=== PATIENT | female | born 1940 | race Caucasian/White ===

== ENCOUNTER 2018-06-24 09:53 | Inpatient (IN) ==
--- NOTE | 2018-06-24 10:01 | Emergency Department Note ---
Disposition Clinical Impression: Venous stasis ulcer of left ankle with fat layer exposed Disposition: Admitted As Inpatient Condition: Fair General Adult HPI - General Stated complaint: Ucler Lt leg / Altered Time Seen by Provider: 06/24/18 09:56 - Related Data Home Medications Medication Instructions Recorded Confirmed Atorvastatin [Lipitor] 20 mg PO HS 06/24/18 06/24/18 BuPROPion XL (24 HR) [Wellbutrin 150 mg PO DAILY 06/24/18 06/24/18 XL] Gabapentin [Neurontin] 300 mg PO Q12H 06/24/18 06/24/18 Losartan Potassium [Cozaar] 50 mg PO DAILY 06/24/18 06/24/18 OxyCODONE/APAP 10/325 [Percocet 1 each PO 5XD PRN 06/24/18 06/24/18 10/325 MG] Allergies Allergy/AdvReac Type Severity Reaction Status Date / Time No Known Allergies Allergy Verified 04/29/18 08:49 Past Medical History - Past Medical History Medical history: Reports: aortic aneurysm, cancer, COPD, dementia, diabetes, GERD, hyperlipidemia, hypertension, myocardial infarction Psychiatric history: Reports: no psych history - Social History Smoking Status: Current every day smoker Smokeless Tobacco Status: No Alcohol use: Reports: none Drug use: Reports: none Course Vital Signs Temperature 97.8 F 06/24/18 10:12 Pulse Rate 65 06/24/18 10:12 Respiratory Rate 18 06/24/18 10:12 Blood Pressure 131/66 06/24/18 10:12 O2 Sat by Pulse Oximetry 100 06/24/18 10:12 Temperature 98.2 F 06/25/18 10:05 Pulse Rate 71 06/25/18 10:05 Respiratory Rate 15 06/25/18 10:05 Blood Pressure 146/71 06/25/18 10:05 O2 Sat by Pulse Oximetry 96 06/25/18 10:05 Oxygen Delivery Oxygen Delivery Room Air Medical Decision Making - Lab Data Result diagrams: 06/25/18 03:44 06/24/18 10:20 Lab Results 06/24/18 06/24/18 06/24/18 Range/Units 10:20 10:20 10:20 WBC 9.2 (4.3-11.1) K/mcL RBC 4.26 (3.82-4.97) M/mcL Hgb 12.4 (11.5-15.4) g/dL Hct 40.1 (35.3-44.9) % MCV 94.1 (83.0-100.0) fL MCH 29.1 (28.0-33.3) pg MCHC 30.9 L (31.6-35.5) g/dL RDW 13.9 (11.5-14.5) % Plt Count 174 (140-400) K/mcL MPV 11.3 (9.4-12.4) fL Immature Gran % 0.3 (0-4) % Seg Neutrophils % 70.7 % Lymphocytes % 17.3 % Monocytes % 8.1 % Eosinophils % 2.8 % Basophils % 0.8 % Neutrophils # 6.5 (1.6-8.9) K/mcL Lymphocytes # 1.6 (0.6-4.6) K/mcL Monocytes # 0.7 (0.0-1.3) K/mcL Eosinophils # 0.3 (0.0-0.6) K/mcL Basophils # 0.1 (0.0-0.2) K/mcL ESR 50 H (0-15) mm/hr Sodium 138 (136-145) mEq/L Potassium 4.5 (3.5-5.1) mEq/L Chloride 105 (98-107) mEq/L Carbon Dioxide 28 (23-29) mEq/L BUN 10 (8-23) mg/dL Creatinine 0.80 (0.60-1.20) mg/dL Est GFR ( Amer) > 60 (> 60) Est GFR (Non-Af Amer) > 60 (> 60) BUN/Creatinine Ratio 13 (6-26) Glucose 95 (70-105) mg/dL Calculated Osmolality 285 (280-300) Calcium 8.6 (8.6-10.3) mg/dL Attestation Statement - Attestation Attestation: For this encounter, I have reviewed the [facility] or PA documentation, treatment plan, and medical decision making; and I have had face to face time with this patient. Face to face time provided. Patient sent to ED for chronic LE ulceration. granulatioin tissue present. Evaluated with SABINO
[2018-06-24] MEDS ORDERED: 0.9 % Sodium Chloride 1,000 ML IVC ONE (10:06)
--- NOTE | 2018-06-24 10:09 | Emergency Department Note ---
Disposition Clinical Impression: Venous stasis ulcer of left ankle with fat layer exposed Qualifiers: Varicose vein presence: with varicose veins Qualified Code(s): I83.023 - Varicose veins of left lower extremity with ulcer of ankle Disposition: Admitted As Inpatient Condition: Fair Extremity Problem HPI - General Chief complaint: ED Extremity Problem,Nontraumatic Stated complaint: Ucler Lt leg / Altered Time Seen by Provider: 06/24/18 09:56 Source: patient, family, other Mode of arrival: wheelchair Limitations: no limitations Nursing Notes Reviewed: Yes Vital Signs Reviewed: Yes - History of Present Illness HPI Narrative: Patient was sent to ED from wound care for admission. She saw her surgeon this AM - Dr. Gusman - and he is concerned about osteomyelitis. She has ulcerations on her ankle which have failed outpatient treatment. Pt Subjective Complaint: extremity pain, other Onset (ago): month(s) Consistency: constant Injury Location: left Quality: burning Radiation: none Improves with: immobilization, elevation, rest Worsens with: weight bearing, walking, palpation Associated symptoms: Reports: denies other symptoms Context: history of peripheral vascular disease - Related Data Home Medications Medication Instructions Recorded Confirmed Atorvastatin [Lipitor] 20 mg PO HS 06/24/18 06/24/18 BuPROPion XL (24 HR) [Wellbutrin 150 mg PO DAILY 06/24/18 06/24/18 XL] Gabapentin [Neurontin] 300 mg PO Q12H 06/24/18 06/24/18 Losartan Potassium [Cozaar] 50 mg PO DAILY 06/24/18 06/24/18 OxyCODONE/APAP 10/325 [Percocet 1 each PO 5XD PRN 06/24/18 06/24/18 10/325 MG] Allergies Allergy/AdvReac Type Severity Reaction Status Date / Time No Known Allergies Allergy Verified 04/29/18 08:49 All systems ED: reviewed and negative except as stated. Review of Systems: As Per HPI Constitutional: Denies: fever, chills, weakness, weight change Eyes: Denies: vision change Cardiovascular: Denies: chest pain, palpitations, dyspnea on exertion, orthopnea, edema, syncope Respiratory: Denies: cough, dyspnea, wheezes, hemoptysis, stridor, sputum production Gastrointestinal: Denies: abdominal pain, nausea, vomiting, diarrhea Musculoskeletal: Denies: back pain, neck pain, joint swelling Integumentary: Denies: rash Neurological: Denies: headache, weakness, numbness, paresthesias Hematological/Lymphatic: Denies: easy bleeding, easy bruising, lymphadenopathy Past Medical History - Past Medical History Attestation: Yes The following information was validated with the patient. Source: patient Medical history: Reports: aortic aneurysm, cancer, COPD, dementia, diabetes, GERD, hyperlipidemia, hypertension, myocardial infarction Surgical history: Reports: orthopedic, other Psychiatric history: Reports: no psych history - Social History Smoking Status: Current every day smoker Smokeless Tobacco Status: No Alcohol use: Reports: none Drug use: Reports: none Physical Exam - General Limitations: no limitations General appearance: alert, in no apparent distress - Head Head exam: atraumatic, normocephalic, normal inspection - Eye Eye exam: Present: normal appearance. Absent: scleral icterus, conjunctival injection, periorbital swelling - ENT ENT exam: normal oropharynx, mucous membranes moist - Neck Neck exam: Present: normal inspection, full ROM, trachea midline. Absent: meningismus - Chest Chest inspection: Present: normal inspection - Respiratory Respiratory exam: Present: normal lung sounds bilaterally. Absent: respiratory distress - Cardiovascular Cardiovascular exam: Present: regular rate, normal rhythm, normal heart sounds - Extremities Exam Extremities exam: Present: tenderness, normal capillary refill. Absent: calf tenderness - Expanded Lower Extremity Exam Hip/Pelvis exam: Present: full ROM Upper leg exam: Absent: tenderness Knee exam: Present: full ROM, knee extension intact. Absent: tenderness, swelling Lower leg exam: Present: Achilles tendon intact. Absent: tenderness, swelling, Homans' sign Ankle exam: Present: full ROM, tenderness, erythema, other (stege 3 decubitus ulcers lukas-lateral and postero-lateral left ankle) Foot/toe exam: Present: full ROM, tenderness, erythema (cellulitis dorsal left foot), other. Absent: ecchymosis Neurovascular/Tendon exam: Present: normal capillary refill. Absent: pulse deficit, motor deficit, sensory deficit, tendon deficit, extremity cold to touch, pallor, foot drop Gait: antalgic - Neurological Exam Neurological exam: Present: alert, oriented X3, CN II-XII intact - Psychiatric Psychiatric exam: Present: normal affect, normal mood - Skin Skin exam: Present: warm, dry, intact, normal color Course Vital Signs Temperature 97.8 F 06/24/18 10:12 Pulse Rate 65 06/24/18 10:12 Respiratory Rate 18 06/24/18 10:12 Blood Pressure 131/66 06/24/18 10:12 O2 Sat by Pulse Oximetry 100 06/24/18 10:12 Temperature 98.2 F 06/25/18 10:05 Pulse Rate 71 06/25/18 10:05 Respiratory Rate 15 06/25/18 10:05 Blood Pressure 146/71 06/25/18 10:05 O2 Sat by Pulse Oximetry 96 06/25/18 10:05 Oxygen Delivery Oxygen Delivery Room Air Extremity Problem, Nontraumati - Medical Records Medical records reviewed: Yes I reviewed the patient's medical records. - Lab Data Lab results reviewed: Yes I reviewed the patient's lab results. Result diagrams: 06/25/18 03:44 06/24/18 10:20 Lab Results 06/24/18 06/24/18 06/24/18 Range/Units 10:20 10:20 10:20 WBC 9.2 (4.3-11.1) K/mcL RBC 4.26 (3.82-4.97) M/mcL Hgb 12.4 (11.5-15.4) g/dL Hct 40.1 (35.3-44.9) % MCV 94.1 (83.0-100.0) fL MCH 29.1 (28.0-33.3) pg MCHC 30.9 L (31.6-35.5) g/dL RDW 13.9 (11.5-14.5) % Plt Count 174 (140-400) K/mcL MPV 11.3 (9.4-12.4) fL Immature Gran % 0.3 (0-4) % Seg Neutrophils % 70.7 % Lymphocytes % 17.3 % Monocytes % 8.1 % Eosinophils % 2.8 % Basophils % 0.8 % Neutrophils # 6.5 (1.6-8.9) K/mcL Lymphocytes # 1.6 (0.6-4.6) K/mcL Monocytes # 0.7 (0.0-1.3) K/mcL Eosinophils # 0.3 (0.0-0.6) K/mcL Basophils # 0.1 (0.0-0.2) K/mcL ESR 50 H (0-15) mm/hr Sodium 138 (136-145) mEq/L Potassium 4.5 (3.5-5.1) mEq/L Chloride 105 (98-107) mEq/L Carbon Dioxide 28 (23-29) mEq/L BUN 10 (8-23) mg/dL Creatinine 0.80 (0.60-1.20) mg/dL Est GFR ( Amer) > 60 (> 60) Est GFR (Non-Af Amer) > 60 (> 60) BUN/Creatinine Ratio 13 (6-26) Glucose 95 (70-105) mg/dL Calculated Osmolality 285 (280-300) Calcium 8.6 (8.6-10.3) mg/dL - Radiology Data Radiology results reviewed: Yes I reviewed the patient's radiology results. Ankle X-Ray 06/24/18 10:03 IMPRESSION: 1. Previous surgical fixation of left ankle. Unchanged appearance of the surgical hardware. 2. No radiographic evidence of acute osseous abnormalities. No radiographic evidence of osteomyelitis. D/ / 06/24/2018 10:52:42 Umair Nino MD / Kaye Hidalgo Interpreting Provider: Umair Nino MD Foot X-Ray 06/24/18 10:03
[2018-06-24] MEDS ORDERED: Piperacillin/Tazobactam 3.375 GM in 0.9 % Sodium Chloride Mini Bag 100 ML IVPB ONE (10:10)
[2018-06-24] MEDS ORDERED: Vancomycin (wt based) 1,000 MG VIAL IV ONE (10:11)
[2018-06-24] MEDS ORDERED: *HR* HYDROcodone/Acet 5/325 mg TABLET PO ONE (10:33)
[2018-06-24] MEDS ORDERED: Ondansetron ODT 4 MG TAB.RAPDIS SL ONE (10:33)
[2018-06-24 10:48] LABS: Basophils # 0.1 K/mcL (0.0-0.2); Basophils % 0.8 %; Eosinophils # 0.3 K/mcL (0.0-0.6); Eosinophils % 2.8 %; Hematocrit 40.1 % (35.3-44.9); Hemoglobin 12.4 g/dL (11.5-15.4); Immature Granulocytes % 0.3 % (0-4); Lymphocytes # 1.6 K/mcL (0.6-4.6); Lymphocytes % 17.3 %; Mean Corpuscular HGB Conc 30.9 g/dL (31.6-35.5); Mean Corpuscular Hemoglobin 29.1 pg (28.0-33.3); Mean Corpuscular Volume 94.1 fL (83.0-100.0); Mean Platelet Volume 11.3 fL (9.4-12.4); Monocytes # 0.7 K/mcL (0.0-1.3); Monocytes % 8.1 %; Neutrophils # 6.5 K/mcL (1.6-8.9); Platelet Count 174 K/mcL (140-400); Red Blood Count 4.26 M/mcL (3.82-4.97); Red Cell Distribution Width 13.9 % (11.5-14.5); Segmented Neutrophils % 70.7 %
[2018-06-24 10:53] LABS: BUN/Creatinine Ratio 13 (6-26); Blood Urea Nitrogen 10 mg/dL (8-23); Calcium 8.6 mg/dL (8.6-10.3); Carbon Dioxide 28 mEq/L (23-29); Chloride 105 mEq/L (98-107); Glucose 95 mg/dL (70-105); Osmolality,Calculated 285 (280-300); Potassium 4.5 mEq/L (3.5-5.1); Sodium 138 mEq/L (136-145); eGFR For Non-African Americans > 60 (> 60)
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
[2018-06-24] MEDS ORDERED: Acetaminophen 325 MG TABLET PO PRN (12:37)
[2018-06-24] MEDS ORDERED: Naloxone 0.4 MG/ML INJ IVP PRN (12:37)
[2018-06-24] MEDS: Ringers Solution, Lactated 1,000 ML IVC SCH (14:14)
[2018-06-24] MEDS: traMADol 50 MG TABLET PO PRN ×2 (15:14→21:16)
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
[2018-06-24] MEDS ORDERED: Ketorolac 30 MG/ML VIAL IVP PRN (16:44)
[2018-06-24] MEDS: *HR* OxyCODONE/APAP 10/325 TABLET PO PRN (17:13)
[2018-06-24] MEDS: Piperacillin/Tazobactam 3.375 GM in 0.9 % Sodium Chloride Mini Bag 100 ML IVPB SCH (18:21)
[2018-06-24] MEDS: Gabapentin 300 MG CAPSULE PO SCH (21:08)
[2018-06-25] MEDS: Ringers Solution, Lactated 1,000 ML IVC SCH (02:23)
[2018-06-25] MEDS: Piperacillin/Tazobactam 3.375 GM in 0.9 % Sodium Chloride Mini Bag 100 ML IVPB SCH ×3 (03:04→18:21)
[2018-06-25 04:58] LABS: Hematocrit 38.4 % (35.3-44.9); Hemoglobin 11.6 g/dL (11.5-15.4); Mean Corpuscular HGB Conc 30.2 g/dL (31.6-35.5); Mean Corpuscular Hemoglobin 28.6 pg (28.0-33.3); Mean Corpuscular Volume 94.8 fL (83.0-100.0); Mean Platelet Volume 11.3 fL (9.4-12.4); Platelet Count 152 K/mcL (140-400); Red Blood Count 4.05 M/mcL (3.82-4.97); Red Cell Distribution Width 13.7 % (11.5-14.5)
[2018-06-25 05:14] LABS: Chol/HDL Ratio 3.6 (0-4.9)
[2018-06-25] MEDS: *HR* Enoxaparin 40 MG/0.4 ML SYRINGE SQ SCH (06:05)
[2018-06-25] MEDS: Gabapentin 300 MG CAPSULE PO SCH ×2 (09:29→21:21)
[2018-06-25] MEDS: BuPROPion XL (24 HR) 150 MG TABLET PO SCH (09:29)
[2018-06-25] MEDS: traMADol 50 MG TABLET PO PRN (09:29)
[2018-06-25] MEDS: Gentamicin Oint 15 GM TUBE TP SCH ×2 (11:42→11:45)
--- NOTE | 2018-06-25 13:49 | Internal Med Progress Note ---
Hospitalist Progress Note - Encounter Date of Encounter: 06/25/18 Time of Encounter: 13:47 - Subjective Interval History: Pt denies prior history of diabetes though it's documented in past meidcal history. She denies PAD or neuropathy that she is aware of. She does report heel pain. She denies fever chills, N/V or diarrhea. She denies chest pain or SOB. - Exam Vitals: Temp Pulse Resp BP Pulse Ox 98.2 F 71 15 146/71 96 06/25/18 10:05 06/25/18 10:05 06/25/18 10:05 06/25/18 10:05 06/25/18 10:05 Exam: - General Limitations: no limitations General appearance: alert, in no apparent distress - Head Head exam: atraumatic, normocephalic, normal inspection - Eye Eye exam: Present: normal appearance. Absent: scleral icterus, conjunctival injection, periorbital swelling - ENT ENT exam: normal oropharynx, mucous membranes moist - Neck Neck exam: Present: normal inspection, full ROM, trachea midline. Absent: meningismus - Chest Chest inspection: Present: normal inspection - Respiratory Respiratory exam: Present: normal lung sounds bilaterally. Absent: respiratory distress - Cardiovascular Cardiovascular exam: Present: regular rate, normal rhythm, normal heart sounds - Extremities Exam Extremities exam: Present: Left calf tenderness with surrounding erythema, normal capillary refill. Absent: Right calf tenderness - Assessment and Plan (1) Non healing left heel wound Current Visit: Yes Status: Acute Assessment and Plan: Pt states she has had wound since before May. Orthopedic consulted to see and recommending continue antibiotic and possible ID consult. Venous doppler negative for acute DVT. Arterial doppler Impressions: 1) Right lower extremity waveform demonstrates normal hemodynamics. 2) Right Ankle Brachial Index is normal. 1) Left lower extremity waveform demonstrates mildly diminished hemodynamics. 2) Left Ankle Brachial Index demonstrates mildly occlusive disease. (2) Cellulitis Current Visit: Yes Status: Acute Assessment and Plan: Continue on Vancomycin and Zosyn for now. (3) Diabetes 1.5, managed as type 2 Current Visit: Yes Status: Chronic Assessment and Plan: Hgb A1C 6.0 but blood glucose has been wnl. (4) COPD (chronic obstructive pulmonary disease) Current Visit: Yes Status: Chronic Assessment and Plan: Not in exacerbation. Adding Albuterol prn (5) Dementia Current Visit: Yes Status: Chronic Assessment and Plan: Will continue supportive care (6) HTN (hypertension) Current Visit: Yes Status: Chronic Assessment and Plan: Losartan DVT Prophylaxis: Lovenox - Summary of Assessment and Plan Summary of Assessment and Plan: History of present illness: Dr. Serrano Ms. Salazar is a 78 year old female Patient with history of aortic aneurysm, COPD, dementia, diabetes, high cholesterol, hypertension and GERD. Patient was sent from wound center because of nonhealing left foot wound and celluliti s patient usually followed by podiatry has been consult for follow-up x-ray does not show acute osteomyelitis patient started on vancomycin and Zosy n , will send culture management by podiatry service patient denies any fever or chills - Time Spent with Patient Total time spent is greater than 50% in coordination of care (as documented) at patient's floor/unit and/or counseling patient: less than 15 minutes Plan of Care Discussed with: patient Internal Medicine: Result - Labs CBC & Chem 7: 06/25/18 03:44 06/24/18 10:20 Labs: Short CBC 06/25/18 Range/Units 03:44 WBC 8.4 (4.3-11.1) K/mcL Hgb 11.6 (11.5-15.4) g/dL Hct 38.4 (35.3-44.9) % Plt Count 152 (140-400) K/mcL - Impressions Impressions Ankle X-Ray 06/24/18 10:03 IMPRESSION: 1. Previous surgical fixation of left ankle. Unchanged appearance of the surgical hardware. 2. No radiographic evidence of acute osseous abnormalities. No radiographic evidence of osteomyelitis. D/ / 06/24/2018 10:52:42 Umair Nino MD / Kaye Hidalgo Interpreting Provider: Umair Nino MD Foot X-Ray 06/24/18 10:03 IMPRESSION: 1. Previous surgical fixation of left ankle. Unchanged appearance of the surgical hardware. 2. No radiographic evidence of acute osseous abnormalities. No radiographic evidence of osteomyelitis. D/ / 06/24/2018 10:52:42 Umair Nino MD / Kaye Hidalgo Interpreting Provider: Umair Nino MD Consult Discharge Plan - Plan Referrals: Mp Barclay MD [Primary Care Provider] - ____ (2) Cellulitis Qualifiers: Site of cellulitis: extremity Site of cellulitis of extremity: lower extremity Laterality: left Qualified Code(s): L03.116 - Cellulitis of left lower limb (4) COPD (chronic obstructive pulmonary disease) Qualifiers: COPD type: emphysema Emphysema type: unspecified Qualified Code(s): J43.9 - Emphysema, unspecified (5) Dementia Qualifiers: Dementia type: unspecified type Dementia behavioral disturbance: without behavioral disturbance Qualified Code(s): F03.90 - Unspecified dementia without behavioral disturbance (6) HTN (hypertension) Qualifiers: Hypertension type: essential hypertension Qualified Code(s): I10 - Essential (primary) hypertension
[2018-06-25] MEDS ORDERED: Albuterol 2.5 MG/3 ML NEBULIZER IH PRN (13:52)
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
--- NOTE | 2018-06-25 15:56 | Podiatry Progress Note ---
Date of Encounter: 06/25/18 Time of Encounter: 11:45 - Assessment and Plan (1) Venous stasis ulcer of left ankle with fat layer exposed Current Visit: Yes Status: Acute Assessment: 03/18/18 HGB A1C 6.0 03/18/18 Wound culture left ankle resulted Pseudomonas aeruginosa, Staph aureus, Strep agalactiae (Group B) 03/23/18 TCPO2 right ankle 35, right foot 41, left ankle 11, left foot 32 03/23 Venous Duplex Results: right saphenous veins without reflux, right peroneal vein not well visualized, left popliteal with 1724 milliseconds with reflux, no reflux to the left saphenous vein, left peroneal vein not well visualized 03/23 Ankle Brachial Index Right DP 0.90, right PT 0.99, left DP 0.82, left PT 0.80 06/24/18 ESR 50 WBC today 8.4 Xray negative for OM. Venous ulceration noted to LLE measuring 14 x 9 x 0.5 cm Slough noted to wound bed. Eschar noted to proximal/lateral wound edges. Erythema noted to LLE streaking to left foot. No pain with calf squeeze Diminished pulses, DP/PT bilaterally 06/24/2018 10:43 am XR/XR ankle complete min 3V LT IMPRESSION: Previous surgical fixation of left ankle. Unchanged appearance of the surgical hardware. No radiographic evidence of acute osseous abnormalities. No radiographic evidence of osteomyelitis. Plan: Wound cultures sent and pending Cleanse wounds with warm soap and water daily. Placed nickel thick santyl and gentamycin to wound bed, cover with adaptic, 4x4 dry gauze, and kerlex. ID managing ATB Place DAVID lightly to left lower extremity. Qualifiers: Varicose vein presence: with varicose veins Qualified Code(s): I83.023 - Varicose veins of left lower extremity with ulcer of ankle; L97.322 - Non-pressu re chronic ulcer of left ankle with fat layer exposed (2) Cellulitis Current Visit: Yes Status: Acute See previous plan Qualifiers: Site of cellulitis: extremity Site of cellulitis of extremity: lower extremity Laterality: left Qualified Code(s): L03.116 - Cellulitis of left lower limb (3) Diabetes 1.5, managed as type 2 Current Visit: Yes Status: Chronic Blood glucose not documented today. Primary managing. Continue tight glycemic control to promote wound healing (4) Smoker Current Visit: Yes Status: Acute Discussed cessation of smoking to help promote wound healing. States she stopped smoking when she came to the hospital and does not intend to resume smoking Primary managing. Recommend nicotine patch to help with cravings. Subjective Interval history: Patient awake in bed. States her dressing was previously changed by the nurse and that she does not want it changed again. She reports paint to left calf. States it shoots up her leg. Denies any fevers, chills, nausea, vomiting, or diarrhea. Objective - Vital Signs Vital Signs: Vital Signs Temp Pulse Resp BP Pulse Ox 06/25/18 14:33 98.5 F 72 15 121/61 95 06/25/18 10:05 98.2 F 71 15 146/71 96 06/25/18 06:30 97.8 F 70 15 135/69 93 06/25/18 03:47 97.7 F 64 16 151/64 93 06/24/18 23:14 98 F 71 15 148/68 94 06/24/18 20:01 97.9 F 65 15 121/64 94 Intake and Output 06/24/18 06/25/18 06/25/18 23:59 07:59 15:59 Intake Total 340 / 340 1250 / 1250 1330 / 1330 Output Total 0 / 0 0 / 0 700 / 700 Balance 340 / 340 1250 / 1250 630 / 630 Intake: IV Fluids 100 / 100 1250 / 1250 850 / 850 Lactated Ringers 1,000 ML @ 75 1000 / 1000 650 / 650 mls/hr IVC .[id number] SADE Rx#: [id number] Zosyn 3.375 GM In 0.9 % Sodium 100 / 100 200 / 200 Chloride (Mini-Bag +) 100 ML @ 25 mls/hr IVPB Q8H SADE Rx#: [id number] Vancocin 1,000 MG In 0.9 % 250 / 250 Sodium Chloride 250 ML @ 167 mls/hr IVPB Q24H SADE Rx#: [id number] Oral 240 / 240 0 / 0 480 / 480 Output: Urine 0 / 0 0 / 0 700 / 700 Other: Meal Dinner Lunch Percent of Meal Consumed 100% 100% # Voids 1 # Bowel Movements 0 Weight 73.8 kg Blood Glucose* 126 82 145 Patient Weight 06/25/18 23:59 Weight 73.8 kg - Lab Result Diagrams: 06/25/18 03:44 06/24/18 10:20 Labs: Abnormal lab results MCHC 30.2 g/dL (31.6-35.5) L 06/25/18 03:44 ESR 50 mm/hr (0-15) H 06/24/18 10:20 POC Glucose 126 mg/dL (70-99) H 06/24/18 20:03 B-Natriuretic Peptide 346 pg/mL (Less than 100) H 06/25/18 03:44 HDL Cholesterol 37 mg/dL (40-59) L 06/25/18 03:44 Microbiology, Last 48 Hours 06/24/18 10:42 Blood Culture - Preliminary Peripheral Venipuncture Culture is incubating and being continuously monitored for growth. Final report to follow. 06/24/18 10:20 Blood Culture - Preliminary Peripheral Venipuncture Culture is incubating and being continuously monitored for growth. Final report to follow. Consult Discharge Plan - Plan Additional Instructions: Follow up in wound care with Dr. Gusman 1 week post d/c Referrals: Mp Barclay MD [Primary Care Provider] - Nilo Gusman DPM [Partnered Physician] -
[2018-06-25] MEDS: *HR* OxyCODONE/APAP 10/325 TABLET PO PRN (21:25)
[2018-06-25] MEDS ORDERED: 0.9 % Sodium Chloride 250 ML ONE (23:40)
[2018-06-26] MEDS: Piperacillin/Tazobactam 3.375 GM in 0.9 % Sodium Chloride Mini Bag 100 ML IVPB SCH ×3 (02:56→17:47)
[2018-06-26] MEDS: *HR* Enoxaparin 40 MG/0.4 ML SYRINGE SQ SCH (05:25)
[2018-06-26] MEDS: Gabapentin 300 MG CAPSULE PO SCH ×2 (07:50→20:21)
[2018-06-26] MEDS: BuPROPion XL (24 HR) 150 MG TABLET PO SCH (07:50)
[2018-06-26] MEDS ORDERED: Aminoglycoside Consult 1 EACH MC ONE (08:05)
[2018-06-26] MEDS: Gentamicin Oint 15 GM TUBE TP SCH (08:56)
[2018-06-26] MEDS: traMADol 50 MG TABLET PO PRN (12:26)
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
[2018-06-26] MEDS: *HR* Heparin 5,000 UNIT/ML VIAL SQ SCH (17:51)
[2018-06-26] MEDS: *HR* OxyCODONE/APAP 10/325 TABLET PO PRN (20:21)
[2018-06-27] MEDS: Piperacillin/Tazobactam 3.375 GM in 0.9 % Sodium Chloride Mini Bag 100 ML IVPB SCH ×3 (03:33→18:34)
[2018-06-27 03:34] LABS: Basophils % 0.5 %; Eosinophils # 0.3 K/mcL (0.0-0.6); Eosinophils % 4.1 %; Hematocrit 35.2 % (35.3-44.9); Immature Granulocytes % 0.3 % (0-4); Lymphocytes # 1.3 K/mcL (0.6-4.6); Lymphocytes % 17.3 %; Mean Corpuscular HGB Conc 31.3 g/dL (31.6-35.5); Mean Corpuscular Hemoglobin 28.8 pg (28.0-33.3); Mean Corpuscular Volume 92.1 fL (83.0-100.0); Monocytes # 0.7 K/mcL (0.0-1.3); Monocytes % 8.7 %; Neutrophils # 5.2 K/mcL (1.6-8.9); Platelet Count 153 K/mcL (140-400); Red Blood Count 3.82 M/mcL (3.82-4.97); Red Cell Distribution Width 13.9 % (11.5-14.5); Segmented Neutrophils % 69.1 %
[2018-06-27 03:53] LABS: BUN/Creatinine Ratio 13 (6-26); Blood Urea Nitrogen 10 mg/dL (8-23); Calcium 8.4 mg/dL (8.6-10.3); Carbon Dioxide 24 mEq/L (23-29); Chloride 110 mEq/L (98-107); Glucose 99 mg/dL (70-105); Osmolality,Calculated 287 (280-300); Potassium 3.9 mEq/L (3.5-5.1); Sodium 139 mEq/L (136-145); eGFR For Non-African Americans > 60 (> 60)
[2018-06-27] MEDS: *HR* Heparin 5,000 UNIT/ML VIAL SQ SCH ×2 (06:14→18:31)
[2018-06-27] MEDS: BuPROPion XL (24 HR) 150 MG TABLET PO SCH (08:47)
[2018-06-27] MEDS: Gabapentin 300 MG CAPSULE PO SCH ×2 (08:47→20:31)
--- NOTE | 2018-06-27 10:55 | Internal Med Progress Note ---
Hospitalist Progress Note - Encounter Date of Encounter: 06/27/18 Time of Encounter: 10:52 - Subjective Interval History: Patient seen and examined in the room, she has no complaints. The redness and swelling of left ankle have significantly improved. - Exam Vitals: Temp Pulse Resp BP Pulse Ox 98.3 F 68 16 126/66 96 06/27/18 10:08 06/27/18 10:08 06/27/18 10:08 06/27/18 10:08 06/27/18 10:08 Exam: PHYSICAL EXAMINATION: GENERAL APPEARANCE: The patient is alert, oriented and in no acute distress. HEENT: Head is normocephalic. The sinuses are nontender. Pupils are equal and reactive. The nares are patent. Oropharynx clear without lesions. NECK: Supple without lymphadenopathy. HEART: Regular rate and rhythm. LUNGS: No crackles or wheezes are heard. ABDOMEN: Soft, nontender, nondistended with good bowel sounds heard. Inguinal area is normal. EXTREMITIES: left ankle two large skin ulcer noted. NEUROLOGICAL: Gross nonfocal. SKIN: Warm and dry without any rash. - Assessment and Plan (1) Chronic ulcer of left ankle Current Visit: Yes Status: Acute Assessment and Plan: 78-year-old female with past history of left ankle and foot fracture, status post internal fixation with hardware. Several months ago, patient bumped hersel f and injured left ankle, skin ulcer developed later. Has been seen at [facility] and by podiatry, no healing. Vascular evaluation showed normal ABIGAIL on the right side, mild PVD on the left side. Wound cx grew multiple organisms (06/27). ID and Podiatry following. - Continue with Zosyn, DC vancomycin on 06/26. - Continue dressing change with santyl and gentamicin ointment daily. - Cellulitis significantly improved. Awaiting final wound culture results, awaiting ID input for the antibiotic choice and duration of treatment after discharge. - Patient likely will be discharged to [facility] to continue wound care. (2) Cellulitis Current Visit: Yes Status: Acute Assessment and Plan: Left ankle wound culture grows multiple organisms, vancomycin was DC'd on 06/26, Zosyn was continued. The size of cellulitis has significantly reduced. Follow- up with sensitivity studies and tailor antibiotics as needed. (3) Diabetes 1.5, managed as type 2 Current Visit: No Status: Chronic Assessment and Plan: Hgb A1C 6.0 but blood glucose has been wnl. (4) COPD (chronic obstructive pulmonary disease) Current Visit: No Status: Chronic Assessment and Plan: Not in exacerbation. Adding Albuterol prn (5) Dementia Current Visit: No Status: Chronic Assessment and Plan: Will continue supportive care (6) HTN (hypertension) Current Visit: No Status: Chronic Assessment and Plan: BP well controlled, continue Losartan (7) Smoker Current Visit: No Status: Chronic Assessment and Plan: Smoking cessation discussed with patient. (8) Fixation hardware in foot Current Visit: No Status: Chronic (9) Fixation hardware in leg Current Visit: No Status: Chronic DVT Prophylaxis: heparin - Time Spent with Patient Total time spent is greater than 50% in coordination of care (as documented) at patient's floor/unit and/or counseling patient: Greater than 35 minutes Plan of Care Discussed with: patient Internal Medicine: Result - Labs CBC & Chem 7: 06/27/18 03:20 06/27/18 03:20 Labs: Short CBC 06/27/18 Range/Units 03:20 WBC 7.6 (4.3-11.1) K/mcL Hgb 11.0 L (11.5-15.4) g/dL Hct 35.2 L (35.3-44.9) % Plt Count 153 (140-400) K/mcL Neutrophils # 5.2 (1.6-8.9) K/mcL BMP 06/27/18 03:20 Sodium 139 Potassium 3.9 Chloride 110 H Carbon Dioxide 24 BUN 10 Creatinine 0.78 Glucose 99 Calcium 8.4 L Consult Discharge Plan - Plan Additional Instructions: Follow up in wound care with Dr. 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
[2018-06-27] MEDS: traMADol 50 MG TABLET PO PRN (11:26)
[2018-06-27] MEDS: Gentamicin Oint 15 GM TUBE TP SCH (11:30)
[2018-06-27] MEDS: *HR* OxyCODONE/APAP 10/325 TABLET PO PRN (18:37)
[2018-06-28 03:54] LABS: Basophils # 0.1 K/mcL (0.0-0.2); Basophils % 0.7 %; Eosinophils # 0.3 K/mcL (0.0-0.6); Eosinophils % 4.1 %; Hematocrit 38.3 % (35.3-44.9); Hemoglobin 11.8 g/dL (11.5-15.4); Immature Granulocytes % 0.4 % (0-4); Lymphocytes # 1.7 K/mcL (0.6-4.6); Lymphocytes % 23.3 %; Mean Corpuscular HGB Conc 30.8 g/dL (31.6-35.5); Mean Corpuscular Hemoglobin 28.9 pg (28.0-33.3); Mean Corpuscular Volume 93.9 fL (83.0-100.0); Mean Platelet Volume 11.2 fL (9.4-12.4); Monocytes # 0.6 K/mcL (0.0-1.3); Monocytes % 8.4 %; Neutrophils # 4.7 K/mcL (1.6-8.9); Platelet Count 160 K/mcL (140-400); Red Blood Count 4.08 M/mcL (3.82-4.97); Red Cell Distribution Width 13.8 % (11.5-14.5); Segmented Neutrophils % 63.1 %
[2018-06-28] MEDS: Piperacillin/Tazobactam 3.375 GM in 0.9 % Sodium Chloride Mini Bag 100 ML IVPB SCH ×3 (03:58→18:08)
[2018-06-28 04:04] LABS: BUN/Creatinine Ratio 16 (6-26); Blood Urea Nitrogen 12 mg/dL (8-23); Calcium 8.4 mg/dL (8.6-10.3); Carbon Dioxide 22 mEq/L (23-29); Chloride 108 mEq/L (98-107); Glucose 92 mg/dL (70-105); Osmolality,Calculated 287 (280-300); Sodium 139 mEq/L (136-145); eGFR For Non-African Americans > 60 (> 60)
[2018-06-28] MEDS: *HR* Heparin 5,000 UNIT/ML VIAL SQ SCH ×2 (05:41→18:07)
[2018-06-28] MEDS: BuPROPion XL (24 HR) 150 MG TABLET PO SCH (07:48)
[2018-06-28] MEDS: Gabapentin 300 MG CAPSULE PO SCH ×2 (07:48→20:33)
--- NOTE | 2018-06-28 11:11 | Internal Med Progress Note ---
Hospitalist Progress Note - Encounter Date of Encounter: 06/28/18 Time of Encounter: 11:08 - Subjective Interval History: Impression lying comfortably on bed. Denies fever chills nausea vomiting headache dizziness chest pain cough shortness of breath urinary bowel complaint. She is able to get around with the help but not much. Review of the lab. - Exam Vitals: Temp Pulse Resp BP Pulse Ox 98.7 F 70 14 138/73 96 06/28/18 10:50 06/28/18 10:50 06/28/18 10:50 06/28/18 10:50 06/28/18 10:50 Exam: PHYSICAL EXAMINATION: GENERAL APPEARANCE: The patient is alert, oriented and in no acute distress. HEART: Regular rate and rhythm. LUNGS: Clear to auscultation bilaterally ABDOMEN: Soft, nontender, nondistended with good bowel sounds heard. Inguinal area is normal. EXTREMITIES: left ankle -bandage in place NEUROLOGICAL: Gross nonfocal. - Assessment and Plan (1) Chronic ulcer of left ankle Current Visit: Yes Status: Acute Assessment and Plan: 78-year-old female with past history of left ankle and foot fracture, status post internal fixation with hardware. Several months ago, patient bumped herself and injured left ankle, skin ulcer developed later. Has been seen at [place] and by podiatry, no healing. Vascular evaluation showed normal ABIGAIL on the right side, mild PVD on the left side. Wound cx grew multiple organisms (06/27). ID and Podiatry following. - Continue with Zosyn, DC vancomycin on 06/26. - Continue dressing change with santyl and gentamicin ointment daily. - Cellulitis significantly improved. Will plan for discharge after discussing with caramel candy maker helper and ID. Patient may need to go to [facility] to continue wound care and possible IV antibiotic if decided by ID specialist. (2) Cellulitis Current Visit: Yes Status: Acute Assessment and Plan: Left ankle wound culture grows multiple organisms, vancomycin was DC'd on 06/26, Zosyn was continued. Final sensitivity report is back and will wait for ID to decide further antibiotic. (3) Diabetes 1.5, managed as type 2 Current Visit: No Status: Chronic Assessment and Plan: Hgb A1C 6.0 but blood glucose has been wnl. (4) COPD (chronic obstructive pulmonary disease) Current Visit: No Status: Chronic Assessment and Plan: Not in exacerbation. Continue Albuterol prn (5) Dementia Current Visit: No Status: Chronic Assessment and Plan: Stable. Continue to monitor (6) HTN (hypertension) Current Visit: No Status: Chronic Assessment and Plan: BP well controlled, continue Losartan (7) Smoker Current Visit: No Status: Chronic Assessment and Plan: Smoking cessation discussed with patient. (8) Fixation hardware in foot Current Visit: No Status: Chronic Assessment and Plan: As per ID note, he will discuss with caramel candy maker helper's about considering MRI or WBC scan for possible infected hardware. Will talk to caramel candy maker helper's for further plan. DVT Prophylaxis: heparin - Time Spent with Patient Total time spent is greater than 50% in coordination of care (as documented) at patient's floor/unit and/or counseling patient: 25 - 35 minutes Plan of Care Discussed with: patient (Discuss the plan with nurse and case management. Talk with organization development consultant on phone and awaiting for his plan For discharge) Internal Medicine: Result - Labs CBC & Chem 7: 06/28/18 02:42 06/28/18 02:42 Labs: Short CBC 06/28/18 Range/Units 02:42 WBC 7.4 (4.3-11.1) K/mcL Hgb 11.8 (11.5-15.4) g/dL Hct 38.3 (35.3-44.9) % Plt Count 160 (140-400) K/mcL Neutrophils # 4.7 (1.6-8.9) K/mcL BMP 06/28/18 02:42 Sodium 139 Potassium 4.0 Chloride 108 H Carbon Dioxide 22 L BUN 12 Creatinine 0.75 Glucose 92 Calcium 8.4 L Consult Discharge Plan - Plan Additional Instructions: Follow up in wound care with Dr. 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
[2018-06-28] MEDS: Gentamicin Oint 15 GM TUBE TP SCH (11:17)
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
[2018-06-28] MEDS: *HR* OxyCODONE/APAP 10/325 TABLET PO PRN ×2 (13:39→20:33)
[2018-06-29] MEDS: Piperacillin/Tazobactam 3.375 GM in 0.9 % Sodium Chloride Mini Bag 100 ML IVPB SCH ×3 (02:06→18:05)
[2018-06-29] MEDS: *HR* Heparin 5,000 UNIT/ML VIAL SQ SCH ×2 (05:19→18:05)
[2018-06-29] MEDS: BuPROPion XL (24 HR) 150 MG TABLET PO SCH (08:13)
[2018-06-29] MEDS: Gabapentin 300 MG CAPSULE PO SCH ×2 (08:13→20:14)
[2018-06-29] MEDS: Gentamicin Oint 15 GM TUBE TP SCH (08:16)
--- NOTE | 2018-06-29 15:12 | Internal Med Progress Note ---
Hospitalist Progress Note - Encounter Date of Encounter: 06/29/18 Time of Encounter: 15:46 - Subjective Interval History: Patient is lying comfortably on bed and reading the magazine. Denies fever chills nausea vomiting headache dizziness chest pain cough shortness of breath urinary bowel complaint. - Exam Vitals: Temp Pulse Resp BP Pulse Ox 98.4 F 86 16 113/69 97 06/29/18 14:06 06/29/18 14:06 06/29/18 14:06 06/29/18 14:06 06/29/18 14:06 Exam: PHYSICAL EXAMINATION: GENERAL APPEARANCE: The patient is alert, oriented and in no acute distress. HEART: Regular rate and rhythm. LUNGS: Clear to auscultation bilaterally ABDOMEN: Soft, nontender, nondistended with good bowel sounds heard. EXTREMITIES: left ankle -bandage in place NEUROLOGICAL: Gross nonfocal. - Assessment and Plan (1) Chronic ulcer of left ankle Current Visit: Yes Status: Acute Assessment and Plan: 78-year-old female with past history of left ankle and foot fracture, status post internal fixation with hardware. Several months ago, patient bumped herself and injured left ankle, skin ulcer developed later. Has been seen at [place] and by podiatry, no healing. Vascular evaluation showed normal ABIGAIL on the right side, mild PVD on the left side. Wound cx grew multiple organisms (06/27) and Pseudomonas aeruginosa, Proteus mirabilis, staph aureus, enterococcus faecalis. ID and Podiatry following. - Continue with Zosyn, DC vancomycin on 06/26. - Continue dressing change with santyl and gentamicin ointment daily as advised by transition mgr rn. - Cellulitis significantly improved. I called ID specialist and also nurse practitioner of podiatry service to discuss the further plan continuation of antibiotic versus surgical intervention having multiple organism and wound culture and also nonhealing ulcer with peripheral vascular disease. ID specialist and transition mgr rn will communicate with each other and inform me back in about further plan of care. Discharge plan based on ID and transition mgr rn's recommendation. Will also inform family after hearing back from them. (2) Cellulitis Current Visit: Yes Status: Acute Assessment and Plan: Left ankle wound culture grows multiple organisms, vancomycin was DC'd on 06/26, Zosyn was continued. ID on board. (3) Diabetes 1.5, managed as type 2 Current Visit: No Status: Chronic Assessment and Plan: Hgb A1C 6.0 but blood glucose has been wnl. (4) COPD (chronic obstructive pulmonary disease) Current Visit: No Status: Chronic Assessment and Plan: Not in exacerbation. Continue Albuterol prn (5) Dementia Current Visit: No Status: Chronic Assessment and Plan: Stable. Continue to monitor (6) HTN (hypertension) Current Visit: No Status: Chronic Assessment and Plan: BP well controlled, continue Losartan (7) Smoker Current Visit: No Status: Chronic Assessment and Plan: Smoking cessation discussed with patient. (8) Fixation hardware in foot Current Visit: No Status: Chronic Assessment and Plan: As per ID note, he will discuss with transition mgr rn's about considering MRI or WBC scan for possible infected hardware. - Time Spent with Patient Total time spent is greater than 50% in coordination of care (as documented) at patient's floor/unit and/or counseling patient: 25 - 35 minutes Plan of Care Discussed with: patient (Talked to ID specialist and also transition mgr rn's service to discuss further plan of care.) Internal Medicine: Result - Labs CBC & Chem 7: 06/28/18 02:42 06/28/18 02:42 Consult Discharge Plan - Plan Additional Instructions: Follow up in wound care with Dr. 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
[2018-06-29] MEDS: traMADol 50 MG TABLET PO PRN (20:14)
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
[2018-06-30] MEDS: Piperacillin/Tazobactam 3.375 GM in 0.9 % Sodium Chloride Mini Bag 100 ML IVPB SCH ×2 (03:17→10:34)
[2018-06-30 04:44] LABS: Basophils # 0.1 K/mcL (0.0-0.2); Basophils % 0.7 %; Eosinophils # 0.3 K/mcL (0.0-0.6); Eosinophils % 3.6 %; Hematocrit 40.2 % (35.3-44.9); Hemoglobin 12.6 g/dL (11.5-15.4); Immature Granulocytes % 0.4 % (0-4); Lymphocytes # 1.7 K/mcL (0.6-4.6); Lymphocytes % 18.6 %; Mean Corpuscular HGB Conc 31.3 g/dL (31.6-35.5); Mean Corpuscular Hemoglobin 29.1 pg (28.0-33.3); Mean Corpuscular Volume 92.8 fL (83.0-100.0); Mean Platelet Volume 10.9 fL (9.4-12.4); Monocytes # 0.8 K/mcL (0.0-1.3); Monocytes % 8.8 %; Neutrophils # 6.1 K/mcL (1.6-8.9); Platelet Count 215 K/mcL (140-400); Red Blood Count 4.33 M/mcL (3.82-4.97); Red Cell Distribution Width 14.2 % (11.5-14.5); Segmented Neutrophils % 67.9 %
[2018-06-30 05:00] LABS: BUN/Creatinine Ratio 18 (6-26); Blood Urea Nitrogen 17 mg/dL (8-23); Carbon Dioxide 24 mEq/L (23-29); Chloride 106 mEq/L (98-107); Glucose 117 mg/dL (70-105); Osmolality,Calculated 291 (280-300); Potassium 3.8 mEq/L (3.5-5.1); Sodium 139 mEq/L (136-145); eGFR For Non-African Americans 58 (> 60)
[2018-06-30] MEDS: *HR* Heparin 5,000 UNIT/ML VIAL SQ SCH (05:26)
[2018-06-30] MEDS: Gabapentin 300 MG CAPSULE PO SCH (07:46)
[2018-06-30] MEDS: BuPROPion XL (24 HR) 150 MG TABLET PO SCH (07:46)
[2018-06-30] MEDS: Gentamicin Oint 15 GM TUBE TP SCH (07:47)
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
[2018-06-30] MEDS ORDERED: levoFLOXacin 500 MG TABLET PO SCH (13:45)
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
[2018-06-30 14:47] VITALS: BP 129/74
[2018-06-30] MEDS: *HR* OxyCODONE/APAP 10/325 TABLET PO PRN (16:03)
[2018-06-30] MEDS ORDERED: Lactobacillus 1 EACH CAP.SPRINK PO SCH (21:00)
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
== END 2018-06-30 17:29 | disposition home health service (06) | DRG 638 ==
LOC: 3ANU 09:53 → EMEROOARM 09:53 → 3ANU 11:36
PROVIDERS: ADMIT Internal Medicine Cardiovascular Disease; ATTEND Internal Medicine Cardiovascular Disease

== ENCOUNTER 2018-10-28 09:33 | Observation (INO) ==
--- NOTE | 2018-10-28 11:58 | Emergency Department Note ---
Disposition Clinical Impression: Pneumonia, Generalized weakness, Leg ulcer Disposition: Admitted As Inpatient Condition: Fair Referrals: Mp Barclay MD [Primary Care Provider] - Forms: ED Satisfaction Letter Time of Disposition: 14:08 General Adult HPI - General Chief complaint: ED Extremity Problem,Nontraumatic Stated complaint: Left foot ulcer Time Seen by Provider: 10/28/18 11:19 Source: patient, family Limitations: altered mental status - History of Present Illness HPI Narrative: Patient presents the emergency department with chief complaint of inability to care for self. She was just at the wound clinic, had her wound debrided, the family states he keeps getting worse, because the patient cannot take care of herself, they state that her wound was getting better while she was in a prison, she got out of the prison to half weeks ago after she had been admitted for pneumonia to the hospital, they state that they do have home health aides that come twice a week but they state that they do not have any more help for her and they state that she has significant dementia she cannot take care of herself she has not showered for 2-1/2 weeks until they forced her to shower today, she continuously smokes cigarettes and even if they take her cigarettes away she finds cigarette butts off the ground and started smoking them. They state that she has also had increasing abdominal pain every time she eats. Patient states she is not having abdominal pain right now, and is a poor historian secondary to her dementia and will deny abdominal pain but the family's where she has abdominal pain when she eats. She has had no cough or sputum production no reported fevers they report that she is more weak than usual, however the patient denies feeling weak. No reported urinary changes. No focal numbness or weakness. We did receive a phone call from the wound clinic sending the patient over because they thought she needed placement. Pain Scale: 3 - Related Data Home Medications Medication Instructions Recorded Confirmed Atorvastatin [Lipitor] 20 mg PO HS 06/24/18 06/24/18 BuPROPion XL (24 HR) [Wellbutrin 150 mg PO DAILY 06/24/18 06/24/18 Xl] Gabapentin [Neurontin] 300 mg PO Q12H 06/24/18 06/24/18 Losartan Potassium [Cozaar] 50 mg PO DAILY 06/24/18 06/24/18 OxyCODONE/APAP 10/325 [Percocet 1 each PO 5XD PRN 06/24/18 06/24/18 10/325 MG] Previous Rx's Medication Instructions Recorded Amoxicillin/Clavulanate [Augmentin] 875 mg PO BIDWM #28 tablet 06/30/18 Lactobacillus [Culturelle] 1 each PO BID #30 cap.sprink 06/30/18 levoFLOXacin [Levaquin] 500 mg PO DAILY #14 tablet 06/30/18 Allergies Allergy/AdvReac Type Severity Reaction Status Date / Time doxycycline Allergy Rash Verified 10/28/18 09:44 All systems ED: reviewed and negative except as stated. Review of Systems: As Per HPI Past Medical History - Past Medical History Medical history: Reports: aortic aneurysm, cancer, COPD, dementia, diabetes, GERD, hyperlipidemia, hypertension, myocardial infarction Surgical history: Reports: orthopedic, other Psychiatric history: Reports: no psych history - Social History Smoking Status: Current every day smoker Smokeless Tobacco Status: No Alcohol use: Reports: none Drug use: Reports: none Physical Exam - General Limitations: altered mental status General appearance: alert, in no apparent distress - Head Head exam: atraumatic, normocephalic - Eye Eye exam: Present: normal appearance, PERRL, EOMI - Expanded Eye Exam Pupils: Left: reactive - ENT ENT exam: normal exam, normal oropharynx, mucous membranes moist - Expanded ENT Exam External ear exam: Present: normal external inspection Mouth exam: Present: normal external inspection Teeth exam: Present: normal inspection Throat exam: Present: normal inspection - Neck Neck exam: Present: normal inspection, full ROM, trachea midline - Chest Chest inspection: Present: normal inspection, symmetric chest wall rise - Respiratory Respiratory exam: Present: wheezes (Few scattered wheezes that clear with cough). Absent: respiratory distress - Cardiovascular Cardiovascular exam: Present: regular rate, normal rhythm, systolic murmur (2/6 systolic murmur no rubs or gallops). Absent: JVD - Abdominal Exam Abdominal exam: Present: soft, Non-Tender. Absent: tenderness, distention, guarding, rebound, rigidity - Extremities Exam Extremities exam: Present: normal inspection, full ROM. Absent: tenderness, pedal edema - Expanded Upper Extremity Exam Shoulder exam: Present: normal inspection, full ROM Arm exam: Present: normal inspection, full ROM Elbow exam: Present: normal inspection, full ROM Forearm/Wrist exam: Present: normal inspection, full ROM Hand exam: Present: normal inspection, full ROM Vascular exam: Normal: capillary refill, radial pulse - Expanded Lower Extremity Exam Hip/Pelvis exam: Present: normal inspection, full ROM Upper leg exam: Present: normal inspection, full ROM Knee exam: Present: normal inspection, full ROM Lower leg exam: Present: full ROM, other (There are ulcerations noted on the distal aspect of the lower extremity, these appear overall healthy with healthy wound beds, consistent with debridement in the office today, there is some very mild pink discoloration of the skin without warmth surrounding this, and appears to be more chronic in nature, rather some chronic skin thickening along with this.). Absent: normal inspection Ankle exam: Present: normal inspection, full ROM Foot/toe exam: Present: normal inspection, full ROM Neurovascular/Tendon exam: Absent: normal capillary refill (Patient has slightly diminished capillary refill bilateral feet), motor deficit, sensory deficit, tendon deficit - Back Exam Back exam: Present: normal inspection, full ROM. Absent: tenderness - Neurological Exam Neurological exam: Present: alert, CN II-XII intact - Expanded Neurological Exam Patient oriented to: Present: person, place Speech: Present: fluid speech Coma Scale Eye Opening: Spontaneous Coma Scale Motor Response: Obeys Commands Coma Scale Verbal Response: Oriented Coma Scale Total: 15 - Psychiatric Psychiatric exam: Present: normal affect, normal mood - Skin Skin exam: Present: warm, dry, normal color. Absent: intact - Other Other exam information: Patient does have palpable distal pulses of the bilateral pedal and popliteal and posterior tibialis, there are slightly diminished distally compared approximately, consistent with her history of peripheral vascular disease, she does have stents in bilateral iliac arteries. Course Vital Signs Temperature 97.5 F L 10/28/18 09:44 Pulse Rate 63 10/28/18 09:44 Respiratory Rate 18 10/28/18 09:44 Blood Pressure 98/55 10/28/18 09:44 O2 Sat by Pulse Oximetry 96 10/28/18 09:44 Temperature 97.5 F L 10/28/18 09:44 Pulse Rate 66 10/28/18 13:47 Respiratory Rate 19 10/28/18 13:47 Blood Pressure 148/58 10/28/18 13:47 O2 Sat by Pulse Oximetry 97 10/28/18 13:47 Oxygen Delivery Oxygen Delivery Room Air Medical Decision Making - [facility] Narrative Medical decision making narrative: Basic laboratory studies were ordered, secondary to recent pneumonia chest x-ray is ordered secondary to the family stating that she has abdominal pain and she is [address] scan of the abdomen and pelvis was ordered. In regards to her wound, this actually appears to be healthy-appearing tissue, there are several wounds on the lower extremity, but none appear currently superinfected, family states they are getting worse, the wound center did state that these wounds are not healing and do appear bigger, but did not feel that there was indication for antibiotics as well. Basic laboratory studies were all within except limits per for mild leukocytosis, lactic acid was within except limits. CT scan abdomen and pelvis showed no significant acute interval abdominal process, however demonstrated bilateral lower lobe infiltrates right greater than left, chest x-ray also showed a right lower lobe infiltrate. Patient was given IV fluids, she was given IV Levaquin for pneumonia. She was admitted to the hospital for further evaluation and management of generalized weakness and inability care for self pneumonia, worsening leg ulceration. - Lab Data Result diagrams: 10/28/18 12:27 10/28/18 12:27 Lab Results 10/28/18 10/28/18 10/28/18 Range/Units 12:27 12:27 12:45 WBC 12.5 H (4.3-11.1) K/mcL RBC 4.26 (3.82-4.97) M/mcL Hgb 12.5 (11.5-15.4) g/dL Hct 40.1 (35.3-44.9) % MCV 94.1 (83.0-100.0) fL MCH 29.3 (28.0-33.3) pg MCHC 31.2 L (31.6-35.5) g/dL RDW 14.2 (11.5-14.5) % Plt Count 204 (140-400) K/mcL MPV 11.4 (9.4-12.4) fL Immature Gran % 0.3 (0-4) % Seg Neutrophils % 78.1 % Lymphocytes % 14.2 % Monocytes % 6.1 % Eosinophils % 1.0 % Basophils % 0.3 % Neutrophils # 9.8 H (1.6-8.9) K/mcL Lymphocytes # 1.8 (0.6-4.6) K/mcL Monocytes # 0.8 (0.0-1.3) K/mcL Eosinophils # 0.1 (0.0-0.6) K/mcL Basophils # 0.0 (0.0-0.2) K/mcL Sodium 144 (136-145) mEq/L Potassium 3.9 (3.5-5.1) mEq/L Chloride 101 (98-107) mEq/L Carbon Dioxide 25 (23-29) mEq/L BUN 13 (8-23) mg/dL Creatinine 0.86 (0.60-1.20) mg/dL Est GFR ( Amer) > 60 (> 60) Est GFR (Non-Af Amer) > 60 (> 60) BUN/Creatinine Ratio 15 (6-26) Glucose 160 H (70-105) mg/dL Calculated Osmolality 302 H (280-300) Lactic Acid (0.5-2.2) mmol/L Calcium 8.9 (8.6-10.3) mg/dL Total Bilirubin 0.5 (0.3-1.0) mg/dL Direct Bilirubin 0.1 (0.0-0.2) mg/dL Indirect Bilirubin 0.4 (0.0-1.2) mg/dL AST 9 L (13-39) Units/L ALT 5 L (7-52) Units/L Alkaline Phosphatase 84 (34-104) Units/L Troponin I < 0.03 (< 0.04) ng/mL Serum Total Protein 6.5 (6.4-8.9) g/dL Albumin 3.7 (3.5-5.7) g/dL Globulin 2.8 (2.4-3.5) g/dL Albumin/Globulin Ratio 1.3 (1.1-2.2) Lipase 27 (11-82) Units/L Urine Color Yellow (Yellow) Urine Clarity Clear (Clear) Urine pH 6.0 (5.0-8.0) pH Units Ur Specific [place] 1.023 (1.010-1.025) Urine Protein Trace (Neg-Trace) mg/dL Urine Glucose (UA) Normal (Normal) mg/dL Urine Ketones Negative (Negative) mg/dL Urine Blood Negative (Negative) Urine Nitrite Negative (Negative) Urine Bilirubin Negative (Negative) Urine Urobilinogen Normal (Normal) mg/dL Ur Leukocyte Esterase Trace H (Negative) Urine Microscopic RBC 0-3 (0-3) per hpf Urine Microscopic WBC 5-15 H (0-3) per hpf Ur Squamous Epith Cells Many H (None-Few) per lpf Calcium Oxalate Crystal Present Urine Bacteria Few (None-Few) per hpf Hyaline Casts None Seen (None-Few) per lpf Urine Yeast Few H (None Seen) per hpf Ur Culture Indicated? NO. A (NO) 10/28/18 Range/Units 13:12 WBC (4.3-11.1) K/mcL RBC (3.82-4.97) M/mcL Hgb (11.5-15.4) g/dL Hct (35.3-44.9) % MCV (83.0-100.0) fL MCH (28.0-33.3) pg MCHC (31.6-35.5) g/dL RDW (11.5-14.5) % Plt Count (140-400) K/mcL MPV (9.4-12.4) fL Immature Gran % (0-4) % Seg Neutrophils % % Lymphocytes % % Monocytes % % Eosinophils % % Basophils % % Neutrophils # (1.6-8.9) K/mcL Lymphocytes # (0.6-4.6) K/mcL Monocytes # (0.0-1.3) K/mcL Eosinophils # (0.0-0.6) K/mcL Basophils # (0.0-0.2) K/mcL Sodium (136-145) mEq/L Potassium (3.5-5.1) mEq/L Chloride (98-107) mEq/L Carbon Dioxide (23-29) mEq/L BUN (8-23) mg/dL Creatinine (0.60-1.20) mg/dL Est GFR ( Amer) (> 60) Est GFR (Non-Af Amer) (> 60) BUN/Creatinine Ratio (6-26) Glucose (70-105) mg/dL Calculated Osmolality (280-300) Lactic Acid 1.6 (0.5-2.2) mmol/L Calcium (8.6-10.3) mg/dL Total Bilirubin (0.3-1.0) mg/dL Direct Bilirubin (0.0-0.2) mg/dL Indirect Bilirubin (0.0-1.2) mg/dL AST (13-39) Units/L ALT (7-52) Units/L Alkaline Phosphatase (34-104) Units/L Troponin I (< 0.04) ng/mL Serum Total Protein (6.4-8.9) g/dL Albumin (3.5-5.7) g/dL Globulin (2.4-3.5) g/dL Albumin/Globulin Ratio (1.1-2.2) Lipase (11-82) Units/L Urine Color (Yellow) Urine Clarity (Clear) Urine pH (5.0-8.0) pH Units Ur Specific [place] (1.010-1.025) Urine Protein (Neg-Trace) mg/dL Urine Glucose (UA) (Normal) mg/dL Urine Ketones (Negative) mg/dL Urine Blood (Negative) Urine Nitrite (Negative) Urine Bilirubin (Negative) Urine Urobilinogen (Normal) mg/dL Ur Leukocyte Esterase (Negative) Urine Microscopic RBC (0-3) per hpf Urine Microscopic WBC (0-3) per hpf Ur Squamous Epith Cells (None-Few) per lpf Calcium Oxalate Crystal Urine Bacteria (None-Few) per hpf Hyaline Casts (None-Few) per lpf Urine Yeast (None Seen) per hpf Ur Culture Indicated? (NO)
[2018-10-28] MEDS ORDERED: 0.9 % Sodium Chloride 1,000 ML IVC ONE (12:40)
[2018-10-28] MEDS ORDERED: Levofloxacin 500 MG/100 ML 500 MG/100 ML BAG IVPB ONE (12:40)
[2018-10-28 12:47] LABS: Basophils % 0.3 %; Eosinophils # 0.1 K/mcL (0.0-0.6); Hematocrit 40.1 % (35.3-44.9); Hemoglobin 12.5 g/dL (11.5-15.4); Immature Granulocytes % 0.3 % (0-4); Lymphocytes # 1.8 K/mcL (0.6-4.6); Lymphocytes % 14.2 %; Mean Corpuscular HGB Conc 31.2 g/dL (31.6-35.5); Mean Corpuscular Hemoglobin 29.3 pg (28.0-33.3); Mean Corpuscular Volume 94.1 fL (83.0-100.0); Mean Platelet Volume 11.4 fL (9.4-12.4); Monocytes # 0.8 K/mcL (0.0-1.3); Monocytes % 6.1 %; Neutrophils # 9.8 K/mcL (1.6-8.9); Platelet Count 204 K/mcL (140-400); Red Blood Count 4.26 M/mcL (3.82-4.97); Red Cell Distribution Width 14.2 % (11.5-14.5); Segmented Neutrophils % 78.1 %
[2018-10-28 13:06] LABS: Alanine Aminotransferase 5 Units/L (7-52); Albumin 3.7 g/dL (3.5-5.7); Albumin/Globulin Ratio 1.3 (1.1-2.2); Alkaline Phosphatase 84 Units/L (34-104); Aspartate Amino Transferase 9 Units/L (13-39); BUN/Creatinine Ratio 15 (6-26); Bilirubin,Direct 0.1 mg/dL (0.0-0.2); Bilirubin,Indirect 0.4 mg/dL (0.0-1.2); Bilirubin,Total 0.5 mg/dL (0.3-1.0); Blood Urea Nitrogen 13 mg/dL (8-23); Calcium 8.9 mg/dL (8.6-10.3); Carbon Dioxide 25 mEq/L (23-29); Chloride 101 mEq/L (98-107); Globulin 2.8 g/dL (2.4-3.5); Glucose 160 mg/dL (70-105); Lipase 27 Units/L (11-82); Osmolality,Calculated 302 (280-300); Potassium 3.9 mEq/L (3.5-5.1); Sodium 144 mEq/L (136-145); Total Protein 6.5 g/dL (6.4-8.9); Troponin I < 0.03 ng/mL (< 0.04); eGFR For Non-African Americans > 60 (> 60)
[2018-10-28 13:27] LABS: Bilirubin,Urine Negative (Negative); Blood,Urine Negative (Negative); Clarity,Urine Clear (Clear); Color,Urine Yellow (Yellow); Glucose,Urine (UA) Normal (Normal); Ketones,Urine Negative (Negative); Leukocyte Esterase,Urine Trace (Negative); Nitrite,Urine Negative (Negative); Protein,Urine Trace mg/dL (Neg-Trace); Specific Gravity,Urine 1.023 (1.010-1.025); Urobilinogen,Urine Normal (Normal)
[2018-10-28 13:29] LABS: Hyaline Casts,Urine None Seen per lpf (None-Few); Squamous Epithelial Cell,Urine Many per lpf (None-Few)
[2018-10-28 13:46] LABS: Bacteria,Urine Few per hpf (None-Few); Calcium Oxalate Crystals,Urine Present; Yeast,Urine Few per hpf (None Seen)
[2018-10-28 13:47] LABS: RBC,Urine 0-3 per hpf (0-3)
[2018-10-28] MEDS ORDERED: *HR* OxyCODONE/APAP 5/325 TABLET PO ONE (14:08)
[2018-10-28] MEDS ORDERED: MOM Conc 10 ML UD.LIQ PO PRN (15:02)
[2018-10-28] MEDS ORDERED: Naloxone 0.4 MG/ML INJ IVP PRN (15:02)
[2018-10-28] MEDS ORDERED: Ipratropium/Albuterol Neb 3 ML IH PRN (15:02)
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
[2018-10-28] MEDS: Ampicillin/Sulbactam 3,000 MG in 0.9 % Sodium Chloride Mini Bag 100 ML IVPB SCH (18:31)
[2018-10-28] MEDS: Acetaminophen 325 MG TABLET PO PRN (18:49)
[2018-10-28] MEDS: *HR* Heparin 5,000 UNIT/ML VIAL SQ SCH (18:49)
[2018-10-29] MEDS: Ampicillin/Sulbactam 3,000 MG in 0.9 % Sodium Chloride Mini Bag 100 ML IVPB SCH ×3 (00:57→11:23)
[2018-10-29 04:13] LABS: Basophils % 0.4 %; Eosinophils # 0.2 K/mcL (0.0-0.6); Eosinophils % 2.7 %; Hematocrit 35.9 % (35.3-44.9); Hemoglobin 11.1 g/dL (11.5-15.4); Immature Granulocytes % 0.2 % (0-4); Mean Corpuscular HGB Conc 30.9 g/dL (31.6-35.5); Mean Corpuscular Hemoglobin 29.2 pg (28.0-33.3); Mean Corpuscular Volume 94.5 fL (83.0-100.0); Mean Platelet Volume 11.5 fL (9.4-12.4); Monocytes # 0.6 K/mcL (0.0-1.3); Monocytes % 6.7 %; Neutrophils # 6.1 K/mcL (1.6-8.9); Platelet Count 177 K/mcL (140-400); Red Cell Distribution Width 14.3 % (11.5-14.5)
[2018-10-29 04:29] LABS: BUN/Creatinine Ratio 14 (6-26); Blood Urea Nitrogen 9 mg/dL (8-23); Calcium 8.2 mg/dL (8.6-10.3); Carbon Dioxide 23 mEq/L (23-29); Chloride 110 mEq/L (98-107); Glucose 92 mg/dL (70-105); Magnesium 1.8 mg/dL (1.6-2.6); Osmolality,Calculated 290 (280-300); Phosphorous 3.8 mg/dL (2.7-4.5); Potassium 3.7 mEq/L (3.5-5.1); Sodium 141 mEq/L (136-145); eGFR For Non-African Americans > 60 (> 60)
[2018-10-29] MEDS: *HR* Heparin 5,000 UNIT/ML VIAL SQ SCH ×2 (05:50→17:26)
--- NOTE | 2018-10-29 06:23 | Electrocardiograph Report ---
[facility] Test Date: 2018-10-28 Pat Name: Josefina Salazar Department: [id number] Room: 3B43 Gender: F Worship Director: : 1940 Requested By: Jono Irizarry Order Number: [id number] Reading MD: Kishor Tamayo Measurements Intervals [place] Rate: 67 P: 33 [place]: 177 QRS: -13 QRSD: 110 T: -2 QT: 463 QTc: 489 Interpretive Statements Sinus rhythm Electronically Signed On 10-29-2018 6:21:37 EDT by Kishor Tamayo
[2018-10-29] MEDS: Acetaminophen 325 MG TABLET PO PRN (15:09)
[2018-10-29] MEDS ORDERED: *HR* OxyCODONE/APAP 10/325 TABLET PO PRN ×3 (15:27→16:46)
--- NOTE | 2018-10-29 16:30 | Internal Med Progress Note ---
Hospitalist Progress Note - Encounter Date of Encounter: 10/29/18 Time of Encounter: 16:28 - Subjective Interval History: Seen and examined at bedside. Patient is new to me, information obtained from chart review and patient report. Of note patient does have dementia and is a poor historian. No family at bedside. Appears somewhat confused and bewilde red. She has no complaints however she does complain of pain with light touching of left lower extremity. No chest pain or shortness of breath. - Exam Vitals: Temp Pulse Resp BP Pulse Ox 98.1 F 70 16 144/66 97 10/29/18 15:38 10/29/18 15:38 10/29/18 15:38 10/29/18 15:38 10/29/18 15:38 Exam: General: awake, alert, appears stated age HEENT:EOM intact, pupils equal, round, moist mucus membranes Neck: supple, trachea midline Cardiovascular:regular rate and rhythm, normal S1 & S2, no rubs, murmurs or gallops. No JVD. no lower extremity edema Lungs:Normal breath sounds, no wheezes, or crackles. Normal respiratory effort on room air Abdomen:Soft, non-tender, non-distended, no rigidity, + bowel sounds, no guard ing, no masses appreciated, no pulsatile masses Neurological: AAOxperson, place, date, month (2015), situation, CN grossly intact, no focal deficits Skin:Normal color, no rash, no pallor. Left lower extremity with multiple scabbed area/wounds appear to be necrotic. Mild surrounding erythema. Exquisitely tender. - Assessment and Plan (1) Pneumonia Current Visit: Yes Status: Acute Assessment and Plan: CXR RLL pna. CT a/p revealed BL basilar opacities. Initially treated with IV Unasyn. Afebrile, no elevated WBC. No tachycardia. De-escalate ATB to azithromycin/ceftriaxone. Respiratory PCR and urinary antigens pending (2) Leg ulcer Current Visit: Yes Status: Acute Assessment and Plan: hx chronic LAD venous stasis wounds. Has seen vascular/wound care in the past but was not seen for quite some time. Cont local wound care. Vascular surgery and wound care consult. LLE x-ray pending (3) Dementia Current Visit: No Status: Chronic Assessment and Plan: per hx. Mentation appears to be at baseline. (4) HTN (hypertension) Current Visit: No Status: Chronic Assessment and Plan: per hx. BP controlled. Cont home BP medications. Monitor BP and titrate PRN (5) Generalized weakness Current Visit: Yes Status: Acute (6) Aneurysm of infrarenal abdominal aorta Current Visit: Yes Status: Acute Assessment and Plan: Known hx visualized on cT a/p and 3.3 cm -fu with outpt providers, next imaging in 3 years (7) Abdominal pain Current Visit: Yes Status: Acute Assessment and Plan: vague diffuse abd pain that she states is why she doesn't eat CT a/p without identifiable etiology has hx constipation has hx of infrarenal AA that is visualized on CT and 3.3 cm, no pulsatile mass on eval resolved on 10/29 exam monitor DVT Prophylaxis: heparin - Time Spent with Patient Total time spent is greater than 50% in coordination of care (as documented) at patient's floor/unit and/or counseling patient: Internal Medicine: Result - Labs CBC & Chem 7: 10/29/18 03:22 10/29/18 03:22 Labs: Short CBC 10/29/18 Range/Units 03:22 WBC 8.9 (4.3-11.1) K/mcL Hgb 11.1 L (11.5-15.4) g/dL Hct 35.9 (35.3-44.9) % Plt Count 177 (140-400) K/mcL Neutrophils # 6.1 (1.6-8.9) K/mcL BMP 10/29/18 03:22 Sodium 141 Potassium 3.7 Chloride 110 H Carbon Dioxide 23 BUN 9 Creatinine 0.65 Glucose 92 Calcium 8.2 L Consult Discharge Plan - Plan Referrals: Mp Barclay MD [Primary Care Provider] - (Unable to schedule appointment due to office being closed. Please call thursday and schedule hospital follow up appointment for 7-10 days from date of discharge. ) (1) Pneumonia Qualifiers: Pneumonia type: due to unspecified organism Laterality: bilateral Lung location: lower lobe of lung Qualified Code(s): J18.1 - Lobar pneumonia, unspecified organism (2) Leg ulcer Qualifiers: Laterality: left Non-pressure ulcer stage: unspecified non-pressure ulcer stage Qualified Code(s): L97.929 - Non-pressure chronic ulcer of unspecified part of left lower leg with unspecified severity (3) Dementia Qualifiers: Dementia type: unspecified type Dementia behavioral disturbance: without behavioral disturbance Qualified Code(s): F03.90 - Unspecified dementia without behavioral disturbance (4) HTN (hypertension) Qualifiers: Hypertension type: essential hypertension Qualified Code(s): I10 - Essential (primary) hypertension (7) Abdominal pain Qualifiers: Abdominal location: generalized Qualified Code(s): R10.84 - Generalized abdominal pain
[2018-10-29] MEDS: Gabapentin 300 MG CAPSULE PO SCH (16:47)
[2018-10-29 19:08] LABS: Adenovirus Not Detected (Not Detect); Bordetella Pertussis Not Detected (Not Detect); Chlamydophila pneumoniae Not Detected (Not Detect); Coronavirus 229E Not Detected (Not Detect); Coronavirus HKU1 Not Detected (Not Detect); Coronavirus NL63 Not Detected (Not Detect); Coronavirus OC43 Not Detected (Not Detect); Human Metapneumovirus Not Detected (Not Detect); Human Rhinovirus/Enterovirus Not Detected (Not Detect); Influenza A Subtype 2009 H1 Not Detected (Not Detect); Influenza A Untypeable Not Detected (Not Detect); Influenza B Not Detected (Not Detect); Mycoplasma pneumoniae Not Detected (Not Detect); Parainfluenza Virus 1 Not Detected (Not Detect); Parainfluenza Virus 2 Not Detected (Not Detect); Parainfluenza Virus 3 Not Detected (Not Detect); Parainfluenza Virus 4 Not Detected (Not Detect); Respiratory Syncytial Virus Not Detected (Not Detect)
[2018-10-30 05:24] LABS: Hematocrit 38.2 % (35.3-44.9); Hemoglobin 11.6 g/dL (11.5-15.4); Mean Corpuscular HGB Conc 30.4 g/dL (31.6-35.5); Mean Corpuscular Hemoglobin 28.8 pg (28.0-33.3); Mean Corpuscular Volume 94.8 fL (83.0-100.0); Mean Platelet Volume 11.9 fL (9.4-12.4); Platelet Count 180 K/mcL (140-400); Red Blood Count 4.03 M/mcL (3.82-4.97); Red Cell Distribution Width 14.1 % (11.5-14.5)
[2018-10-30] MEDS: *HR* Heparin 5,000 UNIT/ML VIAL SQ SCH (05:38)
[2018-10-30 05:41] LABS: Alanine Aminotransferase 4 Units/L (7-52); Albumin 3.4 g/dL (3.5-5.7); Albumin/Globulin Ratio 1.3 (1.1-2.2); Alkaline Phosphatase 70 Units/L (34-104); Aspartate Amino Transferase 8 Units/L (13-39); BUN/Creatinine Ratio 12 (6-26); Bilirubin,Total 0.3 mg/dL (0.3-1.0); Blood Urea Nitrogen 8 mg/dL (8-23); Calcium 8.9 mg/dL (8.6-10.3); Carbon Dioxide 25 mEq/L (23-29); Chloride 106 mEq/L (98-107); Globulin 2.6 g/dL (2.4-3.5); Glucose 93 mg/dL (70-105); Osmolality,Calculated 288 (280-300); Potassium 3.8 mEq/L (3.5-5.1); Sodium 140 mEq/L (136-145); eGFR For Non-African Americans > 60 (> 60)
[2018-10-30] MEDS: Gabapentin 300 MG CAPSULE PO SCH (08:40)
--- NOTE | 2018-10-30 08:41 | Discharge Summary ---
Orders not resulted at time of discharge: Pending orders 10/28/18 13:10 Culture,Blood [BC] Stat 10/28/18 15:02 Culture,Sputum with Gram Stain [RM] Stat 10/29/18 16:30 Legionella Antigen [RM] Stat S. Pneumoniae Antigen [RM] Stat 10/31/18 04:00 BMP [Basic Metabolic Panel] AM 0400 CMP [Comprehensive Metabolic Panel] AM 0400 Complete Blood Count [HEME] AM 0400 Complete Blood Count w/o Diff [HEME] AM 0400 Magnesium AM 0400 11/01/18 04:00 CMP [Comprehensive Metabolic Panel] AM 0400 Complete Blood Count w/o Diff [HEME] AM 0400 11/02/18 04:00 CMP [Comprehensive Metabolic Panel] AM 0400 Complete Blood Count w/o Diff [HEME] AM 0400 11/03/18 04:00 CMP [Comprehensive Metabolic Panel] AM 0400 Complete Blood Count w/o Diff [HEME] AM 0400 Date of Encounter: 10/30/18 Time of Encounter: 08:39 - Discharge Diagnosis (1) Pneumonia Priority: Primary Status: Acute Qualifiers: Pneumonia type: due to unspecified organism Laterality: bilateral Lung location: lower lobe of lung Qualified Code(s): J18.1 - Lobar pneumonia, unspecified organism (2) Abdominal pain Priority: Primary Status: Acute Qualifiers: Abdominal location: generalized Qualified Code(s): R10.84 - Generalized abdominal pain (3) Dementia Priority: Secondary Status: Chronic Qualifiers: Dementia type: unspecified type Dementia behavioral disturbance: without behavioral disturbance Qualified Code(s): F03.90 - Unspecified dementia without behavioral disturbance (4) HTN (hypertension) Priority: Secondary Status: Chronic Qualifiers: Hypertension type: essential hypertension Qualified Code(s): I10 - Essential (primary) hypertension (5) Generalized weakness Priority: Secondary Status: Acute (6) Leg ulcer Priority: Secondary Status: Acute Qualifiers: Laterality: left Non-pressure ulcer stage: unspecified non-pressure ulcer stage Qualified Code(s): L97.929 - Non-pressure chronic ulcer of unspecified part of left lower leg with unspecified severity (7) Aneurysm of infrarenal abdominal aorta Priority: Secondary Status: Acute Hospital course: Ms. Salazar is a 78 year old female with history of dementia (currently AAO person, place, date 10/28 (but year 2016) and situation, chronci left leg wound following at wound clinic, copd, DM, HTN, CAD w [place] hx, infrarenal aortic aneurysm who presented with generalized weakness and inability to care for herself abdominal pain. There was no etiology to her abdominal pain. She had no pain on day of discharge. She is on antibiotics since she was noted to have bilateral lower lobe pneumonia. Eventually she was on room air was doing a lot better." Being discharged on oral Levaquin to finish a course of 5 more days. She was discharged on 10/30/2018 - Time Spent with Patient Total time spent providing and/or coordinating discharge services: Time spent: Greater than 30 minutes - Discharge Medications Prescriptions: New levoFLOXacin [Levaquin] 500 mg PO DAILY #5 tablet Continue Losartan Potassium [Cozaar] 50 mg PO QAM Atorvastatin [Lipitor] 20 mg PO HS BuPROPion XL (24 HR) [Wellbutrin Xl] 150 mg PO QAM OxyCODONE/APAP 10/325 [Percocet 10/325 MG] 1 each PO 5XD PRN PRN Reason: Pain Gabapentin [Neurontin] 300 mg PO Q12H Atenolol [Tenormin] 25 mg PO QAM Collagenase Oint [Santyl] 30 gm TP AD Lactulose 10 gm PO QAM NALOXONE 4 MG Nasal [place] [Narcan] 4 mg NS AD raNITIdine HCl [Ranitidine HCl] 150 mg PO BID Telmisartan [Micardis] 40 mg PO QAM Triamcinolone Acet 0.1% CRM [Kenalog] 1 appl TP AD Home Medications: Atorvastatin [Lipitor] 20 mg PO HS 06/24/18 [History] BuPROPion XL (24 HR) [Wellbutrin Xl] 150 mg PO QAM 06/24/18 [History] Gabapentin [Neurontin] 300 mg PO Q12H 06/24/18 [History] Losartan Potassium [Cozaar] 50 mg PO QAM 06/24/18 [History] OxyCODONE/APAP 10/325 [Percocet 10/325 MG] 1 each PO 5XD PRN 06/24/18 [History] Atenolol [Tenormin] 25 mg PO QAM 10/29/18 [History] Collagenase Oint [Santyl] 30 gm TP AD 10/29/18 [History] Lactulose 10 gm PO QAM 10/29/18 [History] NALOXONE 4 MG Nasal [place] [Narcan] 4 mg NS AD 10/29/18 [History] Telmisartan [Micardis] 40 mg PO QAM 10/29/18 [History] Triamcinolone Acet 0.1% CRM [Kenalog] 1 appl TP AD 10/29/18 [History] raNITIdine HCl [Ranitidine HCl] 150 mg PO BID 10/29/18 [History] levoFLOXacin [Levaquin] 500 mg PO DAILY #5 tablet 10/30/18 [Rx] Allergies/Adverse Reactions: Allergy/AdvReac Type Severity Reaction Status Date / Time doxycycline Allergy Rash Verified 10/29/18 12:22 Date of admission: 10/28/18 15:22 Primary care physician: Mp Barclay MD Consults: 10/28/18 14:35 Consult to Physical Therapy [CONS] Routine Comment: Evaluate, develop and implement POC Reason for Consult: eval for discharge needs, inability to care for self at home Does patient have active BEDREST order?: No Is patient medically & hemodynamically stable?: Yes Patient assessed for mobility or mobilized this visit?: Yes 10/28/18 14:37 Consult to Retail Advertising Sales Manager [CONS] Routine Reason for SW Consult: family feels cannot care for self at home, here with pna 10/28/18 14:39 Consult to Wound Care [CONS] Stat Reason for Consult: follows with wound clinic for chronic leg wounds Call Completed: No 10/29/18 09:37 Consult to Nurse Navigator [CONS] Routine Comment: PNEUMONIA 10/29/18 15:26 Consult to Vascular Surgery [CONS] Routine Consulting Provider: Vascular Surgery Gail Reason for Consult: LLE chronic wound. Has seen you in the past Call Completed: Yes 10/30/18 08:34 Consult to Occupational Therapy [CONS] Routine Comment: Evaluate, develop and implement POC Reason for Consult: therapy/placement needs Does patient have active BEDREST order?: No Is patient medically & hemodynamically stable?: Yes Consult to Physical Therapy [CONS] Routine Comment: Evaluate, develop and implement POC Reason for Consult: PT eval Does patient have active BEDREST order?: No Is patient medically & hemodynamically stable?: Yes - Constitutional Vitals: Temp Pulse Resp BP Pulse Ox 98.3 F 76 17 121/53 96 10/30/18 07:11 10/30/18 07:11 10/30/18 07:11 10/30/18 07:11 10/30/18 07:11 Exam: GEN: NAD CVS: RRR. S1, S2, No m/r/g RESP: CTAB ABD: Soft, NT, ND, +BS EXT: No edema. 2+ DP. No rashes NEURO: Nonfocal - Patient Status Disposition: Home, Self-Care Condition: Fair Overall status at discharge: patient is progressing back to baseline - Discharge Instructions Follow Up With: Mp Barclay MD [Primary Care Provider] - (Unable to schedule appointment due to office being closed. Please call thursday and schedule hospital follow up appointment for 7-10 days from date of discharge. ) - Diet and Activity Activity: increase activity as tolerated Diet: low salt diet
[2018-10-30] MEDS ORDERED: Azithromycin 500 MG in D5% in Water 250 ML IVPB SCH (09:00)
[2018-10-30] MEDS ORDERED: TELMISARTAN 40 MG PO SCH (09:00)
[2018-10-30] MEDS ORDERED: cefTRIAXone 1,000 MG in Water for inj. (sterile) 20 ML 10 ML IVP SCH (09:00)
[2018-10-30 12:10] VITALS: BP 92/55
--- NOTE | 2018-10-30 14:09 | Physician Discharge Referral ---
Home Health/Hosp Referral Info Transfer to: Home Health - Diagnosis (1) Pneumonia Priority: Primary Status: Acute (2) Abdominal pain Priority: Primary Status: Acute (3) Dementia Priority: Secondary Status: Chronic (4) HTN (hypertension) Priority: Secondary Status: Chronic (5) Generalized weakness Priority: Secondary Status: Acute (6) Leg ulcer Priority: Secondary Status: Acute (7) Aneurysm of infrarenal abdominal aorta Priority: Secondary Status: Acute - Respiratory Orders Smoking Cessation: Smoking cessation has been advised. For more information, call the [place] Tobacco Quit Line at 2-923-REEX-NOW. - Services Needed Following services are medically necessary services: Home Health Aide - Transfer Medications Prescriptions: levoFLOXacin [Levaquin] 500 mg PO DAILY #5 tablet Home Medications: Atorvastatin [Lipitor] 20 mg PO HS 06/24/18 [History] BuPROPion XL (24 HR) [Wellbutrin Xl] 150 mg PO QAM 06/24/18 [History] Gabapentin [Neurontin] 300 mg PO Q12H 06/24/18 [History] Losartan Potassium [Cozaar] 50 mg PO QAM 06/24/18 [History] OxyCODONE/APAP 10/325 [Percocet 10/325 MG] 1 each PO 5XD PRN 06/24/18 [History] Atenolol [Tenormin] 25 mg PO QAM 10/29/18 [History] Collagenase Oint [Santyl] 30 gm TP AD 10/29/18 [History] Lactulose 10 gm PO QAM 10/29/18 [History] NALOXONE 4 MG Nasal [place] [Narcan] 4 mg NS AD 10/29/18 [History] Telmisartan [Micardis] 40 mg PO QAM 10/29/18 [History] Triamcinolone Acet 0.1% CRM [Kenalog] 1 appl TP AD 10/29/18 [History] raNITIdine HCl [Ranitidine HCl] 150 mg PO BID 10/29/18 [History] levoFLOXacin [Levaquin] 500 mg PO DAILY #5 tablet 10/30/18 [Rx] Allergies/Adverse Reactions: Allergy/AdvReac Type Severity Reaction Status Date / Time doxycycline Allergy Rash Verified 10/29/18 12:22 Certification: Further, I certify that my clinical findings support that this patient is homebound (i.e. absences from home require considerable and taxing effort and are for medical reasons or cheondoism services or infrequently or short duration when for other reasons) because: Homebound Reason: Patient requires assistance of a person or device to safely leave home Attestation: My signature below is to certify that this patient is under my care and that I, or nurse practitioner, or a physician's hospital clinic assistant working with me, has a [id number] encounter with this patient.
--- NOTE | 2018-11-01 15:52 | Physician Discharge Referral ---
- Diagnosis (1) Pneumonia Priority: Primary Status: Acute (2) Abdominal pain Priority: Primary Status: Acute (3) Dementia Priority: Secondary Status: Chronic (4) HTN (hypertension) Priority: Secondary Status: Chronic (5) Generalized weakness Priority: Secondary Status: Acute (6) Leg ulcer Priority: Secondary Status: Acute (7) Aneurysm of infrarenal abdominal aorta Priority: Secondary Status: Acute - Respiratory Orders Smoking Cessation: Smoking cessation has been advised. For more information, call the [place] Tobacco Quit Line at 1-668-LHGN-NOW. - Services Needed Following services are medically necessary services: Nursing, Home Health Aide - Transfer Medications Prescriptions: levoFLOXacin [Levaquin] 500 mg PO DAILY #5 tablet Home Medications: Atorvastatin [Lipitor] 20 mg PO HS 06/24/18 [History] BuPROPion XL (24 HR) [Wellbutrin Xl] 150 mg PO QAM 06/24/18 [History] Gabapentin [Neurontin] 300 mg PO Q12H 06/24/18 [History] Losartan Potassium [Cozaar] 50 mg PO QAM 06/24/18 [History] OxyCODONE/APAP 10/325 [Percocet 10/325 MG] 1 each PO 5XD PRN 06/24/18 [History] Atenolol [Tenormin] 25 mg PO QAM 10/29/18 [History] Collagenase Oint [Santyl] 30 gm TP AD 10/29/18 [History] Lactulose 10 gm PO QAM 10/29/18 [History] NALOXONE 4 MG Nasal Mather [Narcan] 4 mg NS AD 10/29/18 [History] Telmisartan [Micardis] 40 mg PO QAM 10/29/18 [History] Triamcinolone Acet 0.1% CRM [Kenalog] 1 appl TP AD 10/29/18 [History] raNITIdine HCl [Ranitidine HCl] 150 mg PO BID 10/29/18 [History] levoFLOXacin [Levaquin] 500 mg PO DAILY #5 tablet 10/30/18 [Rx] Allergies/Adverse Reactions: Allergy/AdvReac Type Severity Reaction Status Date / Time doxycycline Allergy Rash Verified 10/29/18 12:22 Certification: Further, I certify that my clinical findings support that this patient is homebound (i.e. absences from home require considerable and taxing effort and are for medical reasons or taoist services or infrequently or short duration when for other reasons) because: Homebound Reason: Patient requires assistance of a person or device to safely leave home Attestation: My signature below is to certify that this patient is under my care and that I, or nurse practitioner, or a physician's social human services assistants working with me, has a fa ce-to-face encounter with this patient.
== END 2018-10-30 15:02 | disposition home or self-care (01) ==
LOC: EMEROOARM 09:33 → 3BNU 09:33 → SUATTDRO 15:22 → 3BNU 15:58
PROVIDERS: ADMIT Internal Medicine; ATTEND Family Medicine